=== PATIENT | female | born 1995 | race Hispanic/Latino ===

== ENCOUNTER 2022-06-12 13:55 | Emergency (ER) | payer OTHER | END 2022-06-12 17:44 | disposition home or self-care (01) | LOC: CSHERS 13:55 | DX: B34.9 Viral infection, unspecified (principal); G44.86 Cervicogenic headache; Z20.822 Contact with and (suspected) exposure to COVID-19 | CPT/HCPCS: 71045; 87804; U0003; U0005 ==